=== PATIENT | female | born 1955 | race Caucasian/White ===

== ENCOUNTER 2018-08-09 22:12 | Emergency (ER) | payer MEDICARE, OTHER ==
[2018-08-10] MEDS: KETOROLAC 30 MG INJ IM (00:06)
[2018-08-10] MEDS: morphine 4 MG/ML VIAL IM (00:07)
== END 2018-08-10 01:50 | disposition home or self-care (01) ==
LOC: FTE 08-10 01:50
DX: S89.92XA Unspecified injury of left lower leg, initial encounter (principal); X50.1XXA Overexertion from prolonged static or awkward postures, initial encounter; Y92.9 Unspecified place or not applicable
CPT/HCPCS: 29505; 73562; 96372; 99284-25